=== PATIENT | female | born 1985 | race Caucasian/White ===

== ENCOUNTER → 2021-12-15 | Outpatient (CLI) | payer BC, OTHER | END | disposition home or self-care (01) | LOC: LABWHC1 09:52 | PROVIDERS: ATTEND Obstetrics & Gynecology | DX: O20.0 Threatened abortion (principal); Z3A.00 Weeks of gestation of pregnancy not specified | CPT/HCPCS: 36415; 84702 ==

== ENCOUNTER → 2021-12-17 | Outpatient (CLI) | payer BC, OTHER | END | disposition home or self-care (01) | LOC: LABWHC1 09:14 | PROVIDERS: ATTEND Obstetrics & Gynecology | DX: O20.0 Threatened abortion (principal); Z3A.00 Weeks of gestation of pregnancy not specified | CPT/HCPCS: 36415; 84702 ==

== ENCOUNTER 2021-12-18 11:13 | Emergency (ER) | payer BC, OTHER ==
[2021-12-18 11:19] VITALS: TEMP 97.8
[2021-12-18] MEDS ORDERED: ACETAMINOPHEN TAB 500 MG TAB PO STA (11:37)
--- NOTE | 2021-12-18 11:45 | ED ---
Female Urogenital HPI - General Chief complaint: Vaginal Bleeding Stated complaint: poss miscarriage Time Seen by Provider: 12/18/21 11:23 Source: patient, RN notes reviewed Mode of arrival: ambulatory Limitations: no limitations - History of Present Illness Initial comments: This is a 36-year-old female who presents to the emergency department for vagin al bleeding. Patient is concerned that she may be having a miscarriage. She had an ultrasound last week and no IUP was found. She then had her hCG values trended, there was a decrease from 12/16 to 12/17 of approximately 100 points. Her hCG yesterday was 13,148, and prior to that it was 13,229. Last night, she started to pass blood clots. She is also experiencing significant abdominal cramping with associated nausea. Denies any fevers, chills, sore throat, cough, dyspnea, chest pain, palpitations, vomiting, diarrhea, back pain, or headaches. MD Complaint: vaginal bleeding, pelvic pain Patient : Yes - Related Data Allergies Allergy/AdvReac Type Severity Reaction Status Date / Time duloxetine [From Cymbalta] Allergy Unknown Verified 12/18/21 11:19 gabapentin [From Neurontin] Allergy Unknown Verified 12/18/21 11:19 latex Allergy Unknown Verified 12/18/21 11:19 levofloxacin [From Levaquin] Allergy Unknown Verified 12/18/21 11:19 Review of Systems ROS Statement: Those systems with pertinent positive or pertinent negative responses have been documented in the HPI. ROS Other: All systems not noted in ROS Statement are negative. Past Medical History Past Medical History: No Reported History History of Any Multi-Drug Resistant Organisms: None Reported Past Surgical History: Appendectomy, Orthopedic Surgery Additional Past Surgical History / Comment(s): knee surgery Past Psychological History: Anxiety, Depression Smoking Status: Never smoker Past Alcohol Use History: None Reported Past Drug Use History: None Reported General Exam Limitations: no limitations General appearance: alert, in no apparent distress Head exam: Present: atraumatic, normocephalic, normal inspection Respiratory exam: Present: normal lung sounds bilaterally. Absent: respiratory distress, wheezes, rales, rhonchi, stridor Cardiovascular Exam: Present: regular rate, normal rhythm, normal heart sounds. Absent: systolic murmur, diastolic murmur, rubs, gallop, clicks GI/Abdominal exam: Present: soft, normal bowel sounds Neurological exam: Present: alert, oriented X3, CN II-XII intact Psychiatric exam: Present: normal affect, normal mood Skin exam: Present: warm, dry, intact, normal color. Absent: rash Course Vital Signs 12/18/21 12/18/21 12/18/21 11:16 13:21 14:02 Temperature 97.8 F Pulse Rate 89 71 73 Respiratory 16 16 18 Rate Blood Pressure 126/74 117/75 126/76 O2 Sat by Pulse 98 100 101 H Oximetry 12/18/21 15:10 Temperature Pulse Rate 70 Respiratory 16 Rate Blood Pressure 118/61 O2 Sat by Pulse 99 Oximetry Medical Decision Making - Medical Decision Making This is a 36-year-old female who presents to the emergency department for vaginal bleeding. Lab work was nonactionable. Patient's hCG did increased to 13,967. Ultrasound obtained, which did not identify an IUP, indicating she may be in the early stages of , however we cannot rule out an ectopic or spontaneous . Findings discussed with the patient, in that we cannot determine the status of her at this time, as her hCG is still increasing. She was given a prescription to have her hCG level redrawn in 2 days. Advised she continue to take Tylenol as needed for any pain relief and recommended she contact Dr. Santos's office on Monday for a follow-up appointment. Patient is Rh- and RhoGAM was administered. Return precautions reviewed in depth, the patient is instructed to return to the emergency department with any new, worsening, or concerning symptoms. Patient ve rbalized understanding. This case was discussed in detail with the attending ED physician. Presentation, findings, and treatment plan discussed in detail as well. - Lab Data Result diagrams: 12/18/21 12:04 12/18/21 12:04 Lab Results 12/18/21 12/18/21 12/18/21 Range/Units 11:50 12:00 12:04 WBC 7.1 (3.8-10.6) k/uL RBC 4.33 (3.80-5.40) m/uL Hgb 12.3 (11.4-16.0) gm/dL Hct 38.6 (34.0-46.0) % MCV 89.2 (80.0-100.0) fL MCH 28.3 (25.0-35.0) pg MCHC 31.8 (31.0-37.0) g/dL RDW 13.5 (11.5-15.5) % Plt Count 306 (150-450) k/uL MPV 7.7 Neutrophils % 59 % Lymphocytes % 29 % Monocytes % 7 % Eosinophils % 3 % Basophils % 1 % Neutrophils # 4.2 (1.3-7.7) k/uL Lymphocytes # 2.1 (1.0-4.8) k/uL Monocytes # 0.5 (0-1.0) k/uL Eosinophils # 0.2 (0-0.7) k/uL Basophils # 0.1 (0-0.2) k/uL Sodium (137-145) mmol/L Potassium (3.5-5.1) mmol/L Chloride (98-107) mmol/L Carbon Dioxide (22-30) mmol/L Anion Gap mmol/L BUN (7-17) mg/dL Creatinine (0.52-1.04) mg/dL Est GFR (CKD-EPI)AfAm (>60 ml/min/1.73 sqM) Est GFR (CKD-EPI)NonAf (>60 ml/min/1.73 sqM) Glucose (74-99) mg/dL Calcium (8.4-10.2) mg/dL Total Bilirubin (0.2-1.3) mg/dL AST (14-36) U/L ALT (4-34) U/L Alkaline Phosphatase (38-126) U/L Total Protein (6.3-8.2) g/dL Albumin (3.5-5.0) g/dL HCG, Quant mIU/mL Urine Color Urine Appearance (Clear) Urine pH (5.0-8.0) Ur Specific [place] (1.001-1.035) Urine Protein (Negative) Urine Glucose (UA) (Negative) Urine Ketones (Negative) Urine Blood (Negative) Urine Nitrite (Negative) Urine Bilirubin (Negative) Urine Urobilinogen (<2.0) mg/dL Ur Leukocyte Esterase (Negative) Urine RBC (0-5) /hpf Urine WBC (0-5) /hpf Ur Squamous Epith Cells (0-4) /hpf Urine Mucus (None) /hpf Blood Type A Negative Blood Type Confirm A Negative Blood Type Recheck No Previous Record Bld Type Recheck Status CABO Indicated 12/18/21 12/18/21 Range/Units 12:04 12:04 WBC (3.8-10.6) k/uL RBC (3.80-5.40) m/uL Hgb (11.4-16.0) gm/dL Hct (34.0-46.0) % MCV (80.0-100.0) fL MCH (25.0-35.0) pg MCHC (31.0-37.0) g/dL RDW (11.5-15.5) % Plt Count (150-450) k/uL MPV Neutrophils % % Lymphocytes % % Monocytes % % Eosinophils % % Basophils % % Neutrophils # (1.3-7.7) k/uL Lymphocytes # (1.0-4.8) k/uL Monocytes # (0-1.0) k/uL Eosinophils # (0-0.7) k/uL Basophils # (0-0.2) k/uL Sodium 136 L (137-145) mmol/L Potassium 4.6 (3.5-5.1) mmol/L Chloride 103 (98-107) mmol/L Carbon Dioxide 23 (22-30) mmol/L Anion Gap 10 mmol/L BUN 15 (7-17) mg/dL Creatinine 0.76 (0.52-1.04) mg/dL Est GFR (CKD-EPI)AfAm >90 (>60 ml/min/1.73 sqM) Est GFR (CKD-EPI)NonAf >90 (>60 ml/min/1.73 sqM) Glucose 82 (74-99) mg/dL Calcium 9.2 (8.4-10.2) mg/dL Total Bilirubin 0.3 (0.2-1.3) mg/dL AST 18 (14-36) U/L ALT 6 (4-34) U/L Alkaline Phosphatase 67 (38-126) U/L Total Protein 7.0 (6.3-8.2) g/dL Albumin 4.1 (3.5-5.0) g/dL HCG, Quant 12376.2 mIU/mL Urine Color Yellow Urine Appearance Cloudy H (Clear) Urine pH 6.0 (5.0-8.0) Ur Specific [place] 1.024 (1.001-1.035) Urine Protein Trace H (Negative) Urine Glucose (UA) Negative (Negative) Urine Ketones Negative (Negative) Urine Blood Large H (Negative) Urine Nitrite Negative (Negative) Urine Bilirubin Negative (Negative) Urine Urobilinogen <2.0 (<2.0) mg/dL Ur Leukocyte Esterase Small H (Negative) Urine RBC 1 (0-5) /hpf Urine WBC 3 (0-5) /hpf Ur Squamous Epith Cells 7 H (0-4) /hpf Urine Mucus Occasional H (None) /hpf Blood Type Blood Type Confirm Blood Type Recheck Bld Type Recheck Status - Radiology Data Radiology results: report reviewed, image reviewed Disposition Clinical Impression: Vaginal bleeding in Disposition: HOME SELF-CARE Instructions (If sedation given, give patient instructions): Threatened Mis carriage (ED) Additional Instructions: Return to the emergency department with any new, worsening, or concerning symptoms. Take the prescription to the lab to have your hCG redrawn in [address] Santos's office on Monday for a follow-up appointment. Continue to take Tylenol as needed for any pain. Is patient prescribed a controlled substance at d/c from ED?: No Referrals: None,Stated [Primary Care Provider] - 1-2 days Lauryn Santos MD [STAFF PHYSICIAN] - 1-2 days
[2021-12-18 12:19] LABS: Basophils # (A) 0.1 k/uL (0-0.2); Basophils % (A) 1 %; Eosinophils # (A) 0.2 k/uL (0-0.7); Eosinophils % (A) 3 %; HCT 38.6 % (34.0-46.0); HGB 12.3 gm/dL (11.4-16.0); Lymphocytes # (A) 2.1 k/uL (1.0-4.8); Lymphocytes % (A) 29 %; MCH 28.3 pg (25.0-35.0); MCHC 31.8 g/dL (31.0-37.0); MCV 89.2 fL (80.0-100.0); Mean Platelet Volume 7.7; Monocytes # (A) 0.5 k/uL (0-1.0); Monocytes % (A) 7 %; Neutrophils # (A) 4.2 k/uL (1.3-7.7); Neutrophils % (A) 59 %; Platelet Count 306 k/uL (150-450); RBC 4.33 m/uL (3.80-5.40); RDW 13.5 % (11.5-15.5); WBC 7.1 k/uL (3.8-10.6)
[2021-12-18 12:29] LABS: Appearance,Urine Cloudy (Clear); Bilirubin,Urine Negative (Negative); Blood,Urine Large (Negative); Color,Urine Yellow; Glucose,Urine (UA) Negative (Negative); Ketones,Urine Negative (Negative); Leukocyte Esterase,Urine Small (Negative); Mucus,Urine Occasional /hpf; Nitrite,Urine Negative (Negative); Protein,Urine Trace (Negative); RBC,Urine 1 /hpf (0-5); Specific Gravity,Urine 1.024 (1.001-1.035); Squamous Epithelial Cell,Urine 7 /hpf (0-4); Urobilinogen,Urine <2.0 mg/dL (<2.0); WBC,Urine 3 /hpf (0-5)
[2021-12-18 12:31] LABS: ALT 6 U/L (4-34); AST 18 U/L (14-36); African American GFR (CKD) >90 (>60 ml/min/1.73 sqM); Albumin 4.1 g/dL (3.5-5.0); Alkaline Phosphatase 67 U/L (38-126); Anion Gap 10 mmol/L; Blood Urea Nitrogen 15 mg/dL (7-17); Calcium 9.2 mg/dL (8.4-10.2); Carbon Dioxide 23 mmol/L (22-30); Chloride 103 mmol/L (98-107); Glucose 82 mg/dL (74-99); Non-African American GFR(CKD) >90 (>60 ml/min/1.73 sqM); Potassium 4.6 mmol/L (3.5-5.1); Sodium 136 mmol/L (137-145); Total Bilirubin 0.3 mg/dL (0.2-1.3)
[2021-12-18 12:48] LABS: HCG,Quantitative Serum 13967.2 mIU/mL
--- NOTE | 2021-12-18 12:50 | US ---
EXAMINATION TYPE: Transabdominal with transvaginal DATE OF EXAM: 12/18/2021 12:35 PM COMPARISON: NONE CLINICAL HISTORY: Bleeding and cramping in . Patient states she had an ultrasound at [facility] this last Monday and there was no IUP at that time. She is having increased bleeding and cramping. EXAM PERFORMED: EXAM MEASUREMENTS: GESTATIONAL AGE / DATING Physician Established: Not yet established Dates by LMP: (9 weeks/ 1 days) EDC: 07-20-22 Dates by First Scan: No previous at this facility Dates by Current Scan for: Unable to date by today's study MATERNAL ANATOMY Uterus: 7.1 x 4.9 x 5.4cm Right Ovary: 3.5 x 2.5 x 2.8cm Left Ovary: obscured by overlying bowel gas Endometrium: 2.2cm, heterogeneous Post CDS / Adnexa: wnl Presence of free fluid: no GESTATION / SURVEY No IUP seen at this time. Date of LMP: 10-15-21 Beta HcG (if available): Not available at this time IMPRESSION: No evidence for intrauterine at this time. Findings could reflect normal early IUP however ectopic as well as missed spontaneous would be difficult to exclude. Correlate clinically with serial beta hCG and/or ultrasound. MTDD
[2021-12-18] MEDS ORDERED: Rhogam IMMUNE GLOBULIN 1,500 UNIT/1 ML IM ONE ×2 (13:43→14:53)
[2021-12-18 15:12] VITALS: BP 118/61; PULSE 70; RESP 16
== END 2021-12-18 15:20 | disposition home or self-care (01) ==
LOC: EC 11:13
DX: O09.511 Supervision of elderly primigravida, first trimester (principal); O20.9 Hemorrhage in early pregnancy, unspecified; O26.891 Other specified pregnancy related conditions, first trimester; R10.2 Pelvic and perineal pain; R10.9 Unspecified abdominal pain; R11.0 Nausea; Z3A.09 9 weeks gestation of pregnancy; Z88.8 Allergy status to other drugs, medicaments and biological substances; Z88.9 Allergy status to unspecified drugs, medicaments and biological substances; Z91.040 Latex allergy status; Z88.1 Allergy status to other antibiotic agents
CPT/HCPCS: 36415; 76801; 80053; 81001; 84702; 85025; 86900; 86901; 96372; 99284

== ENCOUNTER → 2021-12-20 | Outpatient (CLI) | payer BC, OTHER | END | disposition home or self-care (01) | LOC: LABWHC1 10:57 | PROVIDERS: ATTEND Physician Assistant | DX: Z00.00 Encounter for general adult medical examination without abnormal findings (principal) | CPT/HCPCS: 36415; 84702 ==

== ENCOUNTER 2023-07-30 21:10 | Emergency (ER) | payer BC, OTHER ==
[2023-07-30 21:50] VITALS: RESP 18
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
--- NOTE | 2023-07-30 23:01 | XR ---
EXAM: XR Left Knee, 3 Views CLINICAL HISTORY: ITS.REASON XR Reason: left knee pain TECHNIQUE: Three views of the left knee. COMPARISON: No relevant prior studies available. FINDINGS: Bones/joints: Unremarkable. No acute fracture. No dislocation. Soft tissues: Unremarkable. IMPRESSION: Normal left knee x-rays.
[2023-07-31 00:11] VITALS: BP 102/66; PULSE 69; TEMP 98.3
== END 2023-07-30 23:33 | disposition home or self-care (01) ==
LOC: EC 21:10
DX: S80.02XA Contusion of left knee, initial encounter (principal); Z91.040 Latex allergy status; Z88.8 Allergy status to other drugs, medicaments and biological substances; W22.8XXA Striking against or struck by other objects, initial encounter
CPT/HCPCS: 99283

== ENCOUNTER → 2023-10-18 | Outpatient (CLI) | payer OTHER ==
--- NOTE | 2023-10-18 10:47 | XR ---
EXAMINATION TYPE: XR knee complete RT DATE OF EXAM: 10/18/2023 10:41 AM INDICATION: Patient age:Female; 38 years old; Reason for study: S73.101A UNSPECIFIED SPRAIN OF RIGHT HIP, S83.91XA; [facility]. COMPARISON: None. TECHNIQUE: The Right knee(s) was examined in Frontal, lateral and oblique projections. FINDINGS: No evidence of any acute osseous pathology, soft tissue swelling, or joint effusion is no alvaro. IMPRESSION: No acute osseous pathology.
--- NOTE | 2023-10-18 10:49 | XR ---
EXAMINATION TYPE: XR Hip Complete RT DATE OF EXAM: 10/18/2023 10:41 AM INDICATION: Patient age:Female; 38 years old; Reason for study: S73.101A UNSPECIFIED SPRAIN OF RIGHT HIP, S83.91XA; [facility]. COMPARISON: None. TECHNIQUE: The right hip was examined in the frontal and lateral projections . FINDINGS: No evidence of any acute osseous pathology, joint dislocation, or soft tissue swelling. Scl erotic focus within the right iliac bone likely represents a benign bone island. IMPRESSION: No acute osseous pathology.
== END | disposition home or self-care (01) ==
LOC: RADXRMAIN 10:26
PROVIDERS: ATTEND Emergency Medicine
DX: S73.101A Unspecified sprain of right hip, initial encounter (principal); S83.91XA Sprain of unspecified site of right knee, initial encounter
CPT/HCPCS: 73502

== ENCOUNTER 2023-10-25 12:41 | Emergency (ER) | payer OTHER ==
--- NOTE | 2023-10-25 12:50 | ED ---
Lower Extremity Injury HPI - General Chief Complaint: Extremity Injury, Lower Stated Complaint: knee injury Time Seen by Provider: 10/25/23 12:49 Source: patient, RN notes reviewed Mode of arrival: wheelchair Limitations: no limitations - History of Present Illness Initial Comments: This is a 38-year-old female who presents to the emergency department for a right knee injury. States that a week ago she tripped over a cord and landed on her right knee. She was evaluated after the injury and had negative x-rays. States that the pain continues to get worse and she is continuing to rely on crutches. She does not have a follow-up appointment scheduled with orthopedics. Currently taking diclofenac and Robaxin for pain management, which is not part icularly effective. - Related Data Previous Rx's Medication Instructions Recorded Ketorolac [Toradol] 10 mg PO Q6HR PRN #15 tab 10/25/23 Allergies Allergy/AdvReac Type Severity Reaction Status Date / Time duloxetine [From Cymbalta] Allergy Unknown Verified 10/25/23 12:49 gabapentin [From Neurontin] Allergy Unknown Verified 10/25/23 12:49 latex Allergy Unknown Verified 10/25/23 12:49 levofloxacin [From Levaquin] Allergy Unknown Verified 10/25/23 12:49 Review of Systems ROS Statement: Those systems with pertinent positive or pertinent negative responses have been documented in the HPI. ROS Other: All systems not noted in ROS Statement are negative. Past Medical History Past Medical History: No Reported History History of Any Multi-Drug Resistant Organisms: None Reported Past Surgical History: Appendectomy, Orthopedic Surgery Additional Past Surgical History / Comment(s): knee surgery Past Psychological History: Anxiety, Depression Smoking Status: Never smoker Past Alcohol Use History: None Reported Past Drug Use History: None Reported General Exam Limitations: no limitations General appearance: alert, in no apparent distress Head exam: Present: atraumatic, normocephalic, normal inspection Respiratory exam: Present: normal lung sounds bilaterally. Absent: respiratory distress, wheezes, rales, rhonchi, stridor Cardiovascular Exam: Present: regular rate, normal rhythm, normal heart sounds. Absent: systolic murmur, diastolic murmur, rubs, gallop, clicks Extremities exam: Present: other (Tenderness to palpation over the right patella. No swelling, deformities, or ecchymosis. Range of motion limited by pain. 2+ DP and PT pulses.) Neurological exam: Present: alert, oriented X3, CN II-XII intact Psychiatric exam: Present: normal affect, normal mood Skin exam: Present: warm, dry, intact, normal color. Absent: rash Course Vital Signs 10/25/23 10/25/23 12:44 16:58 Temperature 98.0 F 98.4 F Pulse Rate 95 66 Respiratory 16 17 Rate Blood Pressure 127/78 112/72 O2 Sat by Pulse 99 97 Oximetry Medical Decision Making - Medical Decision Making this is a 38-year-old female who presents to the emergency department for right knee pain. Was pt. sent in by a medical professional or institution? @ -No Did you speak to anyone other than the patient for history? @ -No Did you review nursing and triage notes? @ -Yes, and I agree, it is accurate with regards to the patient's symptoms. Were old charts reviewed? @ -No Differential Diagnosis? @ -Differential Musculoskeletal: Muscular strain, contusion, ligament sprain, fracture, arthritis, septic arthritis, bursitis, cellulitis, muscle spasm, nerve compression, DVT, arterial occlusion, herpes zoster, electrolyte abnormality, tumor.... This is not meant to be in all inclusive list EKG interpreted by me (3pts min.)? @ -Not obtained X-rays interpreted by me (1pt min.)? @ -Not obtained CT interpreted by me (1pt min.)? @ -CT scan of the right knee obtained. My interpretation identifies no acute fractures. U/S interpreted by me (1pt. min.)? @ -Not obtained What testing was considered but not performed? (CT, X-rays, U/S, labs)? Why? @ -None What meds were considered but not given? Why? @ -None Did you discuss the management of the patient with other professionals? @ -No Did you reconcile home meds? @ -No Was smoking cessation discussed for >3mins.? @ -No Was critical care preformed (if so, how long)? @ -No Were there social determinants of health that impacted care today? How? (Homelessness, low income, unemployed, alcoholism, drug addiction, transportation, low edu. Level, literacy, decrease access to med. care, care home, rehab)? @ -No Was there de-escalation of care discussed even if they declined? (Discuss DNR or withdrawal of care, Hospice)? @ -No What co-morbidities impacted this encounter? (DM, HTN, Smoking, COPD, CAD, Cancer, CVA, Hep., AIDS, mental health diagnosis, sleep apnea, morbid obesity)? @ -None Was patient admitted / discharged? @ -Discharged. Given that she already had negative x-rays and symptoms are getting worse, CT scan of right knee was obtained. This demonstrates mild tricompartmental osteoarthritis as well as lateral patellar translation sugg esting a patellar tracking disorder. No acute osseous abnormality was identified. Findings reviewed with the patient. Pain medication administered. She was also given a knee immobilizer in the emergency department. Rx for Toradol provided to try in place of the diclofenac. Information for orthopedic follow-up provided. She does have crutches with her that she will also continue using as needed. Patient discharged home in stable condition. Case discussed with Dr. Schmidt. Return precautions reviewed in depth, the patient is instructed to return to the emergency department with any new, worsening, or concerning symptoms. Patient verbalized understanding. Undiagnosed new problem with uncertain prognosis? @ -None Drug Therapy requiring intensive monitoring for toxicity (Heparin, Nitro, Insulin, Cardizem)? @ -None Were any procedures done? @ -None Diagnosis/symptom? @ -Fall, right knee pain Acute, or Chronic, or Acute on Chronic? @ -Acute Uncomplicated (without systemic symptoms) or Complicated (systemic symptoms)? @ -Uncomplicated Side effects of treatment? @ -None Exacerbation, Progression, or Severe Exacerbation] @ -Not applicable Poses a threat to life or bodily function? @ -This is limiting her ability to ambulate. - Radiology Data Radiology results: report reviewed, image reviewed Disposition Clinical Impression: Right knee injury, Patellar tracking disorder of right knee Disposition: HOME SELF-CARE Instructions (If sedation given, give patient instructions): Knee Pain (ED) Additional Instructions: Return to the emergency department with any new, worsening, or concerning symptoms. Take the Toradol with Tylenol as needed for pain relief. If you choose to take the Toradol, do not take any other anti-inflammatories such as ibuprofen or diclofenac, take one or the other. Follow-up with [employer]. and see if you can contact orthopedics listed below for a follow-up appointment and further evaluation. Prescriptions: Ketorolac [Toradol] 10 mg PO Q6HR PRN #15 tab PRN Reason: Pain Is patient prescribed a controlled substance at d/c from ED?: No Referrals: Sal Ventura MD [Primary Care Provider] - 1-2 days Morgan Alicea MD [Medical Doctor] - 1-2 days Time of Disposition: 16:27
--- NOTE | 2023-10-25 13:50 | CT ---
EXAMINATION TYPE: CT knee RT wo con DATE OF EXAM: 10/25/2023 COMPARISON: Radiograph 10/18/2023 HISTORY: 38-year-old female right knee pain following fall, neg xray TECHNIQUE: Contiguous axial scanning of the right knee without IV contrast. Coronal and sagittal vianey nstructions performed. 3-D reconstructions generated on a dedicated independent workstation. CT DLP: 131.2 mGycm Automated exposure control for dose reduction was used. FINDINGS: There is mild tricompartmental degenerative spurring. Focal subchondral cystic change along the mid w eightbearing aspect of the radial femoral condyle articular surface and also lateral facet of the pat ellar articular surface suggesting more focal areas of osteoarthritic change. Lateral patellar translation with a TT-TG distance of approximately 2.0 cm suggests patellar tracking disorder. No acute fracture or dislocation seen. Mild anterior soft tissue swelling. Extensor mechanism is intact. ACL not well assessed by CT. IMPRESSION: 1. AT LEAST MILD TRICOMPARTMENTAL OSTEOARTHROSIS. MORE FOCAL OSTEOARTHRITIC CHANGE INVOLVING THE MID WEIGHTBEARING ASPECT OF THE MEDIAL FEMORAL CONDYLE ARTICULAR SURFACE WELL THE LATERAL PATELLAR FACET ARTICULAR SURFACE. 2. LATERAL PATELLAR TRANSLATION WITH INCREASED TT-TG DISTANCE SUGGESTS PATELLAR TRACKING DISORDER. 3. NO ACUTE OSSEOUS ABNORMALITY SEEN.
[2023-10-25] MEDS: HYDROmorphone 1 MG/ML 1 ML SYRINGE IVP STA (15:28)
[2023-10-25] MEDS: KETOROLAC 15 MG/ML 1 ML VIAL IVP STA (15:28)
[2023-10-25] MEDS: DEXAMETHASONE SOD PHOSPHATE 10 MG/ML 1 ML VIAL IVP STA (15:34)
[2023-10-25] MEDS: ONDANSETRON 4 MG/2 ML VIAL IVP STA (16:54)
[2023-10-25] MEDS: ONDANSETRON 4 MG ODT STARTER PACK 2 TAB BTL PO STA (16:57)
[2023-10-25 17:00] VITALS: BP 112/72; PULSE 66; RESP 17; TEMP 98.4
== END 2023-10-25 17:53 | disposition home or self-care (01) ==
LOC: EC 12:41
DX: S89.91XA Unspecified injury of right lower leg, initial encounter (principal); M22.2X1 Patellofemoral disorders, right knee; Z91.040 Latex allergy status; Z88.8 Allergy status to other drugs, medicaments and biological substances; W18.30XA Fall on same level, unspecified, initial encounter
CPT/HCPCS: 73700; 99284; 96374; 96375 ×3; L1830; J1100; J2405; J1170; J1885; S0119

== ENCOUNTER → 2023-11-08 | Outpatient (CLI) | payer OTHER ==
--- NOTE | 2023-12-07 16:45 | MR ---
Patient: Charlotte Quinones Ordering Physician: Unknown, Unknown ID: [id number] Phone, Pager: Phone: N /A Pager: N/A : 1985 Age/Gender: 38Y, F Primary Location: N/A Procedure: MR Right knee wo con Study Date: 11/08/2023 9:46:22 AM Order #: N/[id number] EXAMINATION TYPE: MR knee RT wo con DATE OF EXAM: 11/20/2023 COMPARISON: CT right knee October 25, 2023 HISTORY: Sprain. Pain and locking since injury 21 days ago TECHNIQUE: Multiplanar, multisequence images of the knee is performed without IV contrast. FINDINGS: MEDIAL MENISCUS: Anterior and posterior horns are intact without tear. LATERAL MENISCUS: Anterior and posterior horns are intact without tear. CRUCIATE LIGAMENTS: The anterior and posterior cruciate ligaments are intact and unremarkable. COLLATERAL LIGAMENTS: The medial collateral ligament and lateral collateral ligament complex are inta ct and unremarkable. EXTENSOR MECHANISM: Visualized quadriceps and patellar tendons are intact. EFFUSION: No significant suprapatellar joint effusion. POPLITEAL CYST: No popliteal/pimentel cyst. TRICOMPARTMENT SPACES: Mild to moderate tricompartment spurring. Tricompartmental joint space loss is most prominent involving the patellofemoral compartment. 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 Trochlear dysplasia is suspected as discussed on CT. OTHER: No additional significant abnormality is appreciated. IMPRESSION: 1. No meniscal or ligamentous tear is seen. 2. Tricompartmental degenerative changes most prominent patellofemoral compartment as detailed above.
== END | disposition home or self-care (01) ==
LOC: RADMRIMAIN 10:00
PROVIDERS: ATTEND Emergency Medicine
DX: S83.91XA Sprain of unspecified site of right knee, initial encounter (principal); M17.11 Unilateral primary osteoarthritis, right knee

== ENCOUNTER → 2023-11-08 | Outpatient (CLI) | payer OTHER ==
--- NOTE | 2023-12-27 14:23 | US ---
EXAMINATION TYPE: US venous doppler duplex LE RT DATE OF EXAM: 11/08/2023 12:29 PM COMPARISON: NONE CLINICAL INDICATION: Pain in popliteal space SIDE PERFORMED: Right TECHNIQUE: The lower extremity deep venous system is examined utilizing real time linear array sonog pankaj with graded compression, doppler sonography and color-flow sonography. VESSELS IMAGED: Common Femoral Vein Deep Femoral Vein Greater Saphenous Vein * Femoral Vein Popliteal Vein Small Saphenous Vein * Proximal Calf Veins (* superficial vessels) Right Leg: No ultrasound evidence of deep venous thrombosis. Popliteal space as visualized appears unremarkable. IMPRESSION: 1. Right lower extremity ultrasound negative for deep venous thrombosis.
== END | disposition home or self-care (01) ==
LOC: RADUSWWP 16:17
PROVIDERS: ATTEND Emergency Medicine
DX: S83.91XD Sprain of unspecified site of right knee, subsequent encounter (principal)

== ENCOUNTER 2024-04-01 15:07 | Emergency (ER) | payer MEDICAID, OTHER ==
[2024-04-01 15:50] VITALS: TEMP 98.2
--- NOTE | 2024-04-01 16:03 | ED ---
General Adult HPI - General Source: patient, RN notes reviewed Mode of arrival: ambulatory Limitations: no limitations <Samantha Ledezma - Last Filed: 04/01/24 16:01> - General Source: patient, RN notes reviewed <Cindy Flores - Last Filed: 04/01/24 19:08> - General Chief complaint: Extremity Injury, Lower Stated complaint: R knee injury Time Seen by Provider: 04/01/24 16:01 - History of Present Illness Initial comments: Quick note: 38-year-old female presents to the emergency department for evaluation of right knee pain. Patient reports that this is been an ongoing issue since September. She states that over the last 3 hours she has had worsening pain in the knee. She denies any new injuries. She does report getting joint injections by Dr. Alicea (Samantha Ledezma) 38-year-old female presenting to the emergency department for evaluation right knee pain. She reports this has been an issue since September of last year. MRI not show any ligament or meniscal tear. She does follow with Dr. Alicea who has been giving her joint injections for pain. States she takes anti-inflammatories and Tylenol for pain at home. States she is here for pain control today. No new injuries. Denies redness, swelling, or calf pain. (Cindy Flores) - Related Data Previous Rx's Medication Instructions Recorded Ketorolac [Toradol] 10 mg PO Q6HR PRN #15 tab 10/25/23 HYDROcodone/APAP 5-325MG [[place] 1 tab PO Q6HR PRN 3 Days #12 tab 10/26/23 5-325] Allergies Allergy/AdvReac Type Severity Reaction Status Date / Time duloxetine [From Cymbalta] Allergy Unknown Verified 04/01/24 15:50 gabapentin [From Neurontin] Allergy Unknown Verified 04/01/24 15:50 latex Allergy Unknown Verified 04/01/24 15:50 levofloxacin [From Levaquin] Allergy Unknown Verified 04/01/24 15:50 Review of Systems ROS Other: All systems not noted in ROS Statement are negative. <Samantha Ledezma - Last Filed: 04/01/24 16:01> ROS Other: All systems not noted in ROS Statement are negative. <Cindy Flores - Last Filed: 04/01/24 19:08> ROS Statement: Those systems with pertinent positive or pertinent negative responses have been documented in the HPI. Past Medical History Past Medical History: No Reported History History of Any Multi-Drug Resistant Organisms: None Reported Past Surgical History: Appendectomy, Orthopedic Surgery Additional Past Surgical History / Comment(s): knee surgery Past Psychological History: Anxiety, Depression Smoking Status: Never smoker Past Alcohol Use History: None Reported Past Drug Use History: None Reported <Samantha Ledezma - Last Filed: 04/01/24 16:01> General Exam Limitations: no limitations <Samantha Ledezma - Last Filed: 04/01/24 16:01> General appearance: alert, in no apparent distress Head exam: Present: atraumatic, normocephalic, normal inspection Right Upper Leg exam: Present: normal inspection, full ROM. Absent: tenderness, swelling Knee exam: Present: normal inspection, full ROM. Absent: tenderness, swelling Lower Leg exam: Present: normal inspection, full ROM. Absent: tenderness, swelling Ankle exam: Present: normal inspection, full ROM. Absent: tenderness, swelling Foot/Toe exam: Present: normal inspection, full ROM. Absent: tenderness, swelling Neurovascular tendon exam: Present: no vascular compromise. Absent: pulse deficit, abnormal cap refill, sensory deficit Neurological exam: Present: alert, oriented X3 Psychiatric exam: Present: normal affect, normal mood Skin exam: Present: warm, dry, intact, normal color. Absent: rash <Cindy Flores - Last Filed: 04/01/24 19:08> - General Exam Comments Initial Comments: Visual Physical Exam Vital signs reviewed General: Well-appearing, nontoxic, no acute distress. Head: Normocephalic, atraumatic Eyes: PERRLA, EOMI ENT: Airway patent Chest: Nonlabored breathing Skin: No visual rash, normal skin tone Neuro: Alert and oriented 3 Musculoskeletal: No gross abnormalities (Samantha Ledezma) Course Vital Signs 04/01/24 04/01/24 15:47 18:50 Temperature 98.2 F Pulse Rate 85 82 Respiratory 22 20 Rate Blood Pressure 119/85 122/84 O2 Sat by Pulse 99 97 Oximetry Medical Decision Making <Samantha Ledezma - Last Filed: 04/01/24 16:01> <Cindy Flores - Last Filed: 04/01/24 19:08> - Medical Decision Making Quick note preformed and electronically signed by Samantha Ledezma PA-C (Samantha Ledezma) Was pt. sent in by a medical professional or institution ([employer], [employer], urgent care, hospital, or [facility]...) When possible be specific @ -No Did you speak to anyone other than the patient for history (EMS, parent, family, police, friend...)? What history was obtained from this source @ -No Did you review nursing and triage notes (agree or disagree)? Why? @ -I reviewed and agree with nursing and triage notes Were old charts reviewed (outside hosp., previous admission, EMS record, old EKG, old radiological studies, urgent care reports/EKG's, [facility] records)? Report findings @ -No old charts were reviewed Differential Diagnosis (chest pain, altered mental status, abdominal pain women, abdominal pain men, vaginal bleeding, weakness, fever, dyspnea, syncope, headache, dizziness, GI bleed, back pain, seizure, CVA, palpatations, mental health, musculoskeletal)? @ -Differential Musculoskeletal Muscular strain, contusion, ligament sprain, fracture, arthritis, septic arthritis, bursitis, cellulitis, muscle spasm, nerve compression, DVT, arterial occlusion, herpes zoster, electrolyte abnormality, tumor.... This is not meant to be in all inclusive list EKG interpreted by me (3pts min.). @ -None X-rays interpreted by me (1pt min.). @ -X-ray right knee reveals no acute process CT interpreted by me (1pt min.). @ -None done U/S interpreted by me (1pt. min.). @ -None done What testing was considered but not performed or refused? (CT, X-rays, U/S, labs)? Why? @ -None What meds were considered but not given or refused? Why? @ -None Did you discuss the management of the patient with other professionals (professionals i.e. [employer], [employer], lab, RT, psych nurse, social worker school, safety attendant, teacher, commanding officer homicide squad, upper caser)? Give summary @ -No Was smoking cessation discussed for >3mins.? @ -No Was critical care preformed (if so, how long)? @ -No Were there social determinants of health that impacted care today? How? (Homelessness, low income, unemployed, alcoholism, drug addiction, transportation, low edu. Level, literacy, decrease access to med. care, [facility], rehab)? @ -No Was there de-escalation of care discussed even if they declined (Discuss DNR or withdrawal of care, Hospice)? DNR status @ -No What co-morbidities impacted this encounter? (DM, HTN, Smoking, COPD, CAD, Cancer, CVA, ARF, Chemo, Hep., AIDS, mental health diagnosis, sleep apnea, morbid obesity)? @ -None Was patient admitted / discharged? Hospital course, mention meds given and route, prescriptions, significant lab abnormalities, going to OR and other pertinent info. @ -Discharge. This is a 38-year-old female presenting for right knee pain. This has been ongoing for 6 months and patient follows with orthopedics for this. She is requesting pain control today. Neurovascularly intact. No sign of bacterial infection. X-ray right knee reveals no acute process. Analgesics provided. Appropriate return precautions and follow-up care discussed. Case was discussed with my ED attending Dr. Reid. Undiagnosed new problem with uncertain prognosis? @ -No Drug Therapy requiring intensive monitoring for toxicity (Heparin, Nitro, Insulin, Cardizem)? @ -No Were any procedures done? @ -No Diagnosis/symptom? @ -Right knee pain Acute, or Chronic, or Acute on Chronic? @ -Acute on chronic Uncomplicated (without systemic symptoms) or Complicated (systemic symptoms)? @ -Uncomplicated Side effects of treatment? @ -No Exacerbation, Progression, or Severe Exacerbation? @ -No Poses a threat to life or bodily function? How? (Chest pain, [place], OR, pneumonia, PE, COPD, DKA, ARF, appy, cholecystitis, CVA, Diverticulitis, Homicidal, Suicidal, threat to staff... and all critical care pts) @ -No (Cindy Flores) Disposition <Samantha Ledezma - Last Filed: 04/01/24 16:01> Is patient prescribed a controlled substance at d/c from ED?: No Time of Disposition: 18:37 <Cindy Flores - Last Filed: 04/01/24 19:08> Clinical Impression: Right knee pain Disposition: HOME SELF-CARE Condition: Stable Instructions (If sedation given, give patient instructions): Knee Pain (ED) Additional Instructions: Follow-up with Dr. Alicea. Please return to the Emergency Department if symptoms worsen or any other concerns. Referrals: Sal Ventura MD [Primary Care Provider] - 1-2 days
--- NOTE | 2024-04-01 16:50 | XR ---
EXAMINATION TYPE: XR knee complete RT DATE OF EXAM: 04/01/2024 4:45 PM COMPARISON: Prior right knee x-ray October 18, [address] October 25, 2023 CLINICAL INDICATION: Female, 38 years old with history of pain, pain TECHNIQUE: Three views of the right knee are obtained. FINDINGS: There is no acute fracture/dislocation evident in the right knee. Mild to moderate narrowi ng patellofemoral compartment remains present. No significant spurring. The overlying soft tissue ap pears unremarkable. IMPRESSION: There is no acute fracture or dislocation in the the right knee. [facility], , 04/01/2024 4:48 PM
[2024-04-01] MEDS: ACET/COD 300 MG/30 MG STARTER PACK 6 TAB BTL PO STA (17:55)
[2024-04-01] MEDS: KETOROLAC 15 MG/ML 1 ML VIAL IM STA (17:55)
[2024-04-01] MEDS: ORPHENADRINE 30 MG/ML 2 ML VIAL IM STA (17:55)
[2024-04-01 18:51] VITALS: BP 122/84; PULSE 82; RESP 20
== END 2024-04-01 18:51 | disposition home or self-care (01) ==
LOC: EC 15:07
DX: M25.561 Pain in right knee (principal); Z88.8 Allergy status to other drugs, medicaments and biological substances; Z91.040 Latex allergy status; Z88.1 Allergy status to other antibiotic agents
CPT/HCPCS: 73562; 99283; 96372 ×2; J2360; J1885

== ENCOUNTER 2024-04-08 10:43 | Emergency (ER) | payer MEDICAID, OTHER ==
[2024-04-08 11:19] VITALS: TEMP 98.2
[2024-04-08 11:26] LABS: Glucose,Whole Blood 90 mg/dL (70-110)
[2024-04-08 11:45] LABS: Basophils # (A) 0.1 k/uL (0-0.2); Basophils % (A) 1 %; Eosinophils # (A) 0.2 k/uL (0-0.7); Eosinophils % (A) 3 %; HCT 38.7 % (34.0-46.0); HGB 12.9 gm/dL (11.4-16.0); Lymphocytes # (A) 2.4 k/uL (1.0-4.8); Lymphocytes % (A) 32 %; MCH 29.3 pg (25.0-35.0); MCHC 33.2 g/dL (31.0-37.0); MCV 88.2 fL (80.0-100.0); Mean Platelet Volume 7.6; Monocytes # (A) 0.5 k/uL (0-1.0); Monocytes % (A) 6 %; Neutrophils # (A) 4.3 k/uL (1.3-7.7); Neutrophils % (A) 57 %; Platelet Count 344 k/uL (150-450); RBC 4.39 m/uL (3.80-5.40); WBC 7.5 k/uL (3.8-10.6)
[2024-04-08 11:57] LABS: ALT 13 U/L (4-34); African American GFR (CKD) >90 (>60 ml/min/1.73 sqM); Anion Gap 8 mmol/L; Blood Urea Nitrogen 14 mg/dL (7-17); Calcium 9.3 mg/dL (8.4-10.2); Carbon Dioxide 26 mmol/L (22-30); Chloride 104 mmol/L (98-107); Glucose 88 mg/dL (74-99); Non-African American GFR(CKD) >90 (>60 ml/min/1.73 sqM); Sodium 138 mmol/L (137-145); Total Bilirubin 0.3 mg/dL (0.2-1.3); Total Protein 7.1 g/dL (6.3-8.2)
[2024-04-08 12:00] LABS: AST 27 U/L (14-36); Alkaline Phosphatase 72 U/L (38-126); INR 0.9 (<1.2); Magnesium 2.2 mg/dL (1.6-2.3); Potassium 4.6 mmol/L (3.5-5.1); Prothrombin Time 10.4 sec (10.0-12.5)
--- NOTE | 2024-04-08 12:42 | XR ---
EXAMINATION TYPE: XR chest 2V DATE OF EXAM: 04/08/2024 12:15 PM COMPARISON: None. CLINICAL INDICATION: Female, 38 years old with history of Chest Pain, TECHNIQUE: XR chest 2V view(s) obtained. FINDINGS: The heart size is normal. The pulmonary vasculature is normal. The lungs are clear. IMPRESSION: 1. No acute pulmonary process. [facility], , 04/08/2024 12:40 PM
[2024-04-08 13:32] LABS: Glucose,Whole Blood 91 mg/dL (70-110)
--- NOTE | 2024-04-08 13:44 | ED ---
General Adult HPI - General Chief complaint: Chest Pain Stated complaint: chest pain Time Seen by Provider: 04/08/24 13:15 Source: patient, EMS, RN notes reviewed, old records reviewed Mode of arrival: wheelchair Limitations: no limitations - History of Present Illness Initial comments: Is a 38-year-old female who presents to the emergency department she states she has no diabetes high blood pressure has some high cholesterol. Patient denies smoking. Patient states she was at work and got into an argument with her boss and she has some chest pain that was sharp in nature to the left lateral breast area. Patient states she had no shortness of breath or difficulty breathing. Patient has any diaphoretic episode. Patient denies any radiation of the pain. Patient has any nausea. Patient states the pain subsided after about 2 hours. Patient states she has been pain-free for at least an hour and a half. Patient denies any recent fever chills or cough. Patient Nuys any back pain. Patient Nuys any abdominal pain patient has nausea vomiting diarrhea. - Related Data Home Medications Medication Instructions Recorded Confirmed Acetaminophen [Tylenol 8 Hour] 1,300 mg PO TID 04/08/24 04/08/24 Atorvastatin [Lipitor] 20 mg PO HS 04/08/24 04/08/24 Celecoxib [CeleBREX] 200 mg PO BID 04/08/24 04/08/24 Cetirizine HCl [Zyrtec] 10 mg PO HS 04/08/24 04/08/24 Lansoprazole [Prevacid] 15 mg PO HS 04/08/24 04/08/24 methocarbamoL [Robaxin-750] 750 mg PO BID 04/08/24 04/08/24 Allergies Allergy/AdvReac Type Severity Reaction Status Date / Time gabapentin [From Neurontin] Allergy Rash/Hives Verified 04/08/24 14:08 latex Allergy Rash/Hives Verified 04/08/24 14:08 levofloxacin [From Levaquin] Allergy Arm Verified 04/08/24 14:08 Burning after IV Levaquin duloxetine [From Cymbalta] AdvReac weight gain Verified 04/08/24 14:08 Review of Systems ROS Statement: Those systems with pertinent positive or pertinent negative responses have been documented in the HPI. ROS Other: All systems not noted in ROS Statement are negative. Past Medical History Past Medical History: No Reported History Additional Past Medical History / Comment(s): hypoglycemia History of Any Multi-Drug Resistant Organisms: None Reported Past Surgical History: Appendectomy, Orthopedic Surgery Additional Past Surgical History / Comment(s): knee surgery Past Psychological History: Anxiety, Depression Smoking Status: Never smoker Past Alcohol Use History: Occasional Past Drug Use History: None Reported General Exam - General Exam Comments Initial Comments: GENERAL: Patient is well-developed and well-nourished. Patient is nontoxic and well- hydrated and is in mild distress. ENT: Neck is soft and supple. No significant lymphadenopathy is noted. Oropharynx is clear. Moist mucous membranes. Neck has full range of motion without eliciting any pain. EYES: The sclera were anicteric and conjunctiva were pink and moist. Extraocular movements were intact and pupils were equal round and reactive to light. Eyelids were unremarkable. PULMONARY: Unlabored respirations. Good breath sounds bilaterally. No audible rales rhonchi or wheezing was noted. CARDIOVASCULAR: There is a regular rate and rhythm without any murmurs gallops or rubs. ABDOMEN: Soft and nontender with normal bowel sounds. SKIN: Skin is clear with no lesions or rashes and otherwise unremarkable. NEUROLOGIC: Patient is alert and oriented x3. Cranial nerves II through XII are grossly intact. Motor and sensory are also intact. Normal speech, volume and content. Symmetrical smile. MUSCULOSKELETAL: Normal extremities with adequate strength and full range of motion. LYMPHATICS: No significant lymphadenopathy is noted PSYCHIATRIC: Normal psychiatric evaluation. Limitations: no limitations Course Vital Signs 04/08/24 04/08/24 11:15 14:23 Temperature 98.2 F Pulse Rate 83 86 Respiratory 18 16 Rate Blood Pressure 110/78 136/82 O2 Sat by Pulse 100 100 Oximetry Medical Decision Making - Medical Decision Making EKG is interpreted by myself. EKG shows sinus rhythm at 76 bpm [place] interval is 152 QRS is 87 QT interval 382 QTc is 413. Patient EKG shows no ST segment elevation or depression. Was pt. sent in by a medical professional or institution (, [facility], [facility], urgent care, hospital, or usp...) When possible be specific @ -No Did you speak to anyone other than the patient for history (EMS, parent, family, police, friend...)? What history was obtained from this source @ -No Did you review nursing and triage notes (agree or disagree)? Why? @ -I reviewed and agree with nursing and triage notes Were old charts reviewed (outside hosp., previous admission, EMS record, old EKG, old radiological studies, urgent care reports/EKG's, usp records)? Report findings @ -No old charts were reviewed Differential Diagnosis? @ -Differential Chest Pain: Stable Angina, Unstable Angina, STEMI, NSTEMI Aortic Dissection, Pneumothorax, Musculoskeletal, Esophageal Spasm GERD, Cholecystitis, Pancreatitis, Zoster, this is not meant to be an all-inclusive list. EKG interpreted by me (3pts min.). @ -As above X-rays interpreted by me (1pt min.). @ -Chest x-ray shows no acute normality CT interpreted by me (1pt min.). @ -None done U/S interpreted by me (1pt. min.). @ -None done What testing was considered but not performed or refused? (CT, X-rays, U/S, labs)? Why? @ -None What meds were considered but not given or refused? Why? @ -None Did you discuss the management of the patient with other professionals (professionals i.e. , PA, NAT[employer] REM[employer]Y CONSULTANT, lab, RT, psych nurse, social worker delinquency prevention, ip technology transactions attorney, teacher, correctional officer captain, case management associate)? Give summary @ -No Was smoking cessation discussed for >3mins.? @ -No Was critical care preformed (if so, how long)? @ -No Were there social determinants of health that impacted care today? How? (Homelessness, low income, unemployed, alcoholism, drug addiction, transportation, low edu. Level, literacy, decrease access to med. care, detention, rehab)? @ -No Was there de-escalation of care discussed even if they declined (Discuss DNR or withdrawal of care, Hospice)? DNR status @ -No What co-morbidities impacted this encounter? (DM, HTN, Smoking, COPD, CAD, Cancer, CVA, ARF, Chemo, Hep., AIDS, mental health diagnosis, sleep apnea, morbid obesity)? @ -None Was patient admitted / discharged? Hospital course, mention meds given and route, prescriptions, significant lab abnormalities, going to OR and other pertinent info. @ -Patient's lab work showed no acute normality. Troponin was normal I repeated the troponin because the patient was here almost 3 hours and the second troponin was normal as well. Chest x-ray was normal. Patient was feeling considerably better and no chest pain at this time. Undiagnosed new problem with uncertain prognosis? @ -No Drug Therapy requiring intensive monitoring for toxicity (Heparin, Nitro, Insulin, Cardizem)? @ -No Were any procedures done? @ -No Diagnosis/symptom? @ -Atypical chest Acute, or Chronic, or Acute on Chronic? @ -Acute Uncomplicated (without systemic symptoms) or Complicated (systemic symptoms)? @ -Complicated Side effects of treatment? @ -No Exacerbation, Progression, or Severe Exacerbation? @ -No Poses a threat to life or bodily function? How? (Chest pain, [place], [place], pneumonia, PE, COPD, DKA, ARF, appy, cholecystitis, CVA, Diverticulitis, Homicidal, Suicidal, threat to staff... and all critical care pts) @ -No - Lab Data Result diagrams: 04/08/24 11:33 04/08/24 11:33 Lab Results 04/08/24 04/08/24 04/08/24 Range/Units 11:25 11:33 11:33 WBC 7.5 (3.8-10.6) k/uL RBC 4.39 (3.80-5.40) m/uL Hgb 12.9 (11.4-16.0) gm/dL Hct 38.7 (34.0-46.0) % MCV 88.2 (80.0-100.0) fL MCH 29.3 (25.0-35.0) pg MCHC 33.2 (31.0-37.0) g/dL RDW 13.0 (11.5-15.5) % Plt Count 344 (150-450) k/uL MPV 7.6 Neutrophils % 57 % Lymphocytes % 32 % Monocytes % 6 % Eosinophils % 3 % Basophils % 1 % Neutrophils # 4.3 (1.3-7.7) k/uL Lymphocytes # 2.4 (1.0-4.8) k/uL Monocytes # 0.5 (0-1.0) k/uL Eosinophils # 0.2 (0-0.7) k/uL Basophils # 0.1 (0-0.2) k/uL PT 10.4 (10.0-12.5) sec INR 0.9 (<1.2) APTT 22.0 (22.0-30.0) sec Sodium (137-145) mmol/L Potassium (3.5-5.1) mmol/L Chloride (98-107) mmol/L Carbon Dioxide (22-30) mmol/L Anion Gap mmol/L BUN (7-17) mg/dL Creatinine (0.52-1.04) mg/dL Est GFR (CKD-EPI)AfAm (>60 ml/min/1.73 sqM) Est GFR (CKD-EPI)NonAf (>60 ml/min/1.73 sqM) Glucose (74-99) mg/dL POC Glucose (mg/dL) 90 (70-110) mg/dL POC Glu Ladler ID [place] Rafaela Calcium (8.4-10.2) mg/dL Magnesium (1.6-2.3) mg/dL Total Bilirubin (0.2-1.3) mg/dL AST (14-36) U/L ALT (4-34) U/L Alkaline Phosphatase (38-126) U/L Troponin I (0.000-0.034) ng/mL Total Protein (6.3-8.2) g/dL Albumin (3.5-5.0) g/dL 04/08/24 04/08/24 04/08/24 Range/Units 11:33 11:33 13:31 WBC (3.8-10.6) k/uL RBC (3.80-5.40) m/uL Hgb (11.4-16.0) gm/dL Hct (34.0-46.0) % MCV (80.0-100.0) fL MCH (25.0-35.0) pg MCHC (31.0-37.0) g/dL RDW (11.5-15.5) % Plt Count (150-450) k/uL MPV Neutrophils % % Lymphocytes % % Monocytes % % Eosinophils % % Basophils % % Neutrophils # (1.3-7.7) k/uL Lymphocytes # (1.0-4.8) k/uL Monocytes # (0-1.0) k/uL Eosinophils # (0-0.7) k/uL Basophils # (0-0.2) k/uL PT (10.0-12.5) sec INR (<1.2) APTT (22.0-30.0) sec Sodium 138 (137-145) mmol/L Potassium 4.6 (3.5-5.1) mmol/L Chloride 104 (98-107) mmol/L Carbon Dioxide 26 (22-30) mmol/L Anion Gap 8 mmol/L BUN 14 (7-17) mg/dL Creatinine 0.72 (0.52-1.04) mg/dL Est GFR (CKD-EPI)AfAm >90 (>60 ml/min/1.73 sqM) Est GFR (CKD-EPI)NonAf >90 (>60 ml/min/1.73 sqM) Glucose 88 (74-99) mg/dL POC Glucose (mg/dL) 91 (70-110) mg/dL POC Glu Ladler ID Isaias Gabi Calcium 9.3 (8.4-10.2) mg/dL Magnesium 2.2 (1.6-2.3) mg/dL Total Bilirubin 0.3 (0.2-1.3) mg/dL AST 27 (14-36) U/L ALT 13 (4-34) U/L Alkaline Phosphatase 72 (38-126) U/L Troponin I <0.012 (0.000-0.034) ng/mL Total Protein 7.1 (6.3-8.2) g/dL Albumin 4.0 (3.5-5.0) g/dL 04/08/24 Range/Units 13:32 WBC (3.8-10.6) k/uL RBC (3.80-5.40) m/uL Hgb (11.4-16.0) gm/dL Hct (34.0-46.0) % MCV (80.0-100.0) fL MCH (25.0-35.0) pg MCHC (31.0-37.0) g/dL RDW (11.5-15.5) % Plt Count (150-450) k/uL MPV Neutrophils % % Lymphocytes % % Monocytes % % Eosinophils % % Basophils % % Neutrophils # (1.3-7.7) k/uL Lymphocytes # (1.0-4.8) k/uL Monocytes # (0-1.0) k/uL Eosinophils # (0-0.7) k/uL Basophils # (0-0.2) k/uL PT (10.0-12.5) sec INR (<1.2) APTT (22.0-30.0) sec Sodium (137-145) mmol/L Potassium (3.5-5.1) mmol/L Chloride (98-107) mmol/L Carbon Dioxide (22-30) mmol/L Anion Gap mmol/L BUN (7-17) mg/dL Creatinine (0.52-1.04) mg/dL Est GFR (CKD-EPI)AfAm (>60 ml/min/1.73 sqM) Est GFR (CKD-EPI)NonAf (>60 ml/min/1.73 sqM) Glucose (74-99) mg/dL POC Glucose (mg/dL) (70-110) mg/dL POC Glu Ladler ID Calcium (8.4-10.2) mg/dL Magnesium (1.6-2.3) mg/dL Total Bilirubin (0.2-1.3) mg/dL AST (14-36) U/L ALT (4-34) U/L Alkaline Phosphatase (38-126) U/L Troponin I <0.012 (0.000-0.034) ng/mL Total Protein (6.3-8.2) g/dL Albumin (3.5-5.0) g/dL Disposition Clinical Impression: Chest pain Disposition: HOME SELF-CARE Condition: Good Instructions (If sedation given, give patient instructions): Chest Pain (ED) Additional Instructions: Patient should return to the emergency department if there are any new or worsening symptoms. Is patient prescribed a controlled substance at d/c from ED?: No Referrals: Sal Ventura MD [Primary Care Provider] - 1-2 days Time of Disposition: 14:17
[2024-04-08 14:24] VITALS: BP 136/82; PULSE 86; RESP 16
== END 2024-04-08 14:24 | disposition home or self-care (01) ==
LOC: EC 10:43
DX: R07.9 Chest pain, unspecified (principal); Z88.1 Allergy status to other antibiotic agents; Z91.040 Latex allergy status; Z88.8 Allergy status to other drugs, medicaments and biological substances
CPT/HCPCS: 36415; 71046; 80053; 83735; 84484; 85025; 85610; 85730; 93005; 99285

== ENCOUNTER → 2024-06-24 | Outpatient (CLI) | payer MEDICAID, OTHER ==
--- NOTE | 2024-06-24 18:45 | CA ---
Transthoracic Echo Report Name: Charlotte Quinones Age: 39 Gender: F : 1985 Exam Date: 06/24/2024 11:38 Exam Location: [place] [facility] Ht (in): 71 Wt (lb): 265 Ordering Physician: Sal Ventura MD Attending/Referring Phys: Sal Ventura MD Section Leader [employer] Ratna Medina, [facility] Procedure CPT: Indications: R07.9 CHEST PAIN R00.2 PALPITATIONS Cardiac Hx: Technical Quality: Good Contrast 1: Total Dose (mL): Contrast 2: Total Dose (mL): MEASUREMENTS (Male / Female) Normal Values 2D ECHO LV Diastolic Diameter PLAX 4.1 cm 4.2 - 5.9 / 3.9 - 5.3 cm LV Systolic Diameter PLAX 2.8 cm IVS Diastolic Thickness 0.7 cm 0.6 - 1.0 / 0.6 - 0.9 cm LVPW Diastolic Thickness 0.9 cm 0.6 - 1.0 / 0.6 - 0.9 cm LV Relative Wall Thickness 0.4 LVOT Diameter 2.0 cm LV Diastolic Volume MOD BP 122.4 cm??? 67 - 155 / 56 - 104 cm??? LV Systolic Volume MOD BP 53.4 cm??? 22 - 58 / 19 - 49 cm??? LV Ejection Fraction MOD BP 56.4 % >= 55 % LV Cardiac Index MOD BP 2485.3 cm???/min???m??? LV Diastolic Volume MOD 4C 125.7 cm??? LV Systolic Volume MOD 4C 56.4 cm??? LV Ejection Fraction MOD 4C 55.2 % LV Cardiac Index MOD 4C 2495.7 cm???/min???m??? LV Diastolic Length 4C 8.3 cm LV Systolic Length 4C 7.0 cm LV Diastolic Volume MOD 2C 118.2 cm??? LV Systolic Volume MOD 2C 49.4 cm??? LV Ejection Fraction MOD 2C 58.2 % LV Cardiac Index MOD 2C 2475.0 cm???/min???m??? LV Diastolic Length 2C 8.4 cm LV Systolic Length 2C 6.8 cm LA Volume 59.6 cm??? 18 - 58 / 22 - 52 cm??? LA Volume Index 23.9 cm???/m??? 16 - 28 cm???/m??? Ascending Aorta Diameter 3.1 cm DOPPLER AV Peak Velocity 166.7 cm/s AV Peak Gradient 11.1 mmHg AV Mean Velocity 104.6 cm/s AV Mean Gradient 5.2 mmHg AV Velocity Time Integral 31.4 cm LVOT Peak Velocity 118.4 cm/s LVOT Peak Gradient 5.6 mmHg LVOT Velocity Time Integral 24.0 cm LVOT Stroke Volume 75.8 cm??? LVOT Stroke Volume Index 31.9 ml/m??? LVOT Cardiac Index 2729.0 cm???/min???m??? AV Area Cont Eq vti 2.4 cm??? AV Area Cont Eq pk 2.2 cm??? MV Area PHT 4.7 cm??? Mitral E Point Velocity 78.4 cm/s Mitral A Point Velocity 61.2 cm/s Mitral E to A Ratio 1.3 MV Deceleration Time 160.3 ms TR Peak Velocity 238.6 cm/s TR Peak Gradient 22.8 mmHg Right Atrial Pressure 5.0 mmHg Pulmonary Artery Systolic Pressu 27.8 mmHg Right Ventricular Systolic Press 27.8 mmHg PV Peak Velocity 100.8 cm/s PV Peak Gradient 4.1 mmHg FINDINGS Left Ventricle Left ventricular ejection fraction is estimated at 55-60 %. Moderately increased left ventricular diastolic volume. Mildly increased left ventricular systolic volume. Left ventricular wall thickness normal. No obvious regional wall motion abnormalities. Right Ventricle Normal right ventricular size and function. Right ventricular systolic pressure within normal limits. Right Atrium Normal right atrial size. Left Atrium Mildly increased left atrial volume. Mitral Valve Structurally normal mitral valve. No evidence for mitral valve prolapse. No mitral stenosis. Mild mitral regurgitation. Aortic Valve Trileaflet aortic valve. No aortic valve stenosis or regurgitation. Tricuspid Valve Structurally normal tricuspid valve. No tricuspid stenosis. Mild tricuspid regurgitation. Pulmonic Valve Structurally normal pulmonic valve. No pulmonic stenosis. Trace pulmonic regurgitation. Pericardium No pericardial effusion. Aorta Normal size aortic root and proximal ascending aorta. CONCLUSIONS Indication with procedure chest pain and palpitations Preserved LV size and function Left atrial enlargement Previewed by: Dr. Zhang Mcnulty MD (Electronically Signed) Final Date: 24 June 2024 18:44
== END | disposition home or self-care (01) ==
LOC: RADECHMAIN 11:07
PROVIDERS: ATTEND Family Medicine
DX: R07.9 Chest pain, unspecified (principal); R00.2 Palpitations
CPT/HCPCS: 93306